=== PATIENT | female | born 1960 | race Caucasian/White ===

== ENCOUNTER 2016-10-04 10:04 | Emergency (ER) | payer OTHER ==
[~2016-10-04] VITALS: Ht 165.1 cm; Wt 75.5 kg
[~2016-10-04 10:04] MED LIST: GABA300C3 PO; ULTR50TA PO
[2016-10-04 10:13] VITALS: BP 157/85; PULSE 102; RESP 16; TEMP 98.3; O2SAT 98
--- NOTE | 2016-10-04 10:35 | PD ---
HPI Chief Complaint: GI Complaint Time Seen by Provider: 10:26 Travel History International Travel<30 days: No Contact w/Intl Traveler<30days: No Traveled to known affect area: No History of Present Illness HPI This 56-year-old female is complaining of headache and vomiting. She says she' s been sick since Sunday night. She had a fairly sudden onset of headache. It's a headache is located behind both of the eyes. There is some photophobia. She has no numbness or tingling. She says she is generally not prone to headaches. Since the headache started she's been having some nausea and vomiting. She's been vomiting just about whenever she eats. She is not on any medication. She is generally healthy [facility] Past Medical History Medical History: Denies Significant Hx Cancer: No Cardiovascular Problems: No Diabetes: No Endocrine: No Genitourinary: No Hepatitis: No Hiatal Hernia: No Immune Disorder: No Musculoskeletal: No Neurologic: No Psychiatric: No Reproductive: No Respiratory: No Thyroid Disease: No Influenza Vaccination: No ?: Not Past Surgical History Abdominal Surgery: No AICD: No Cardiac Surgery: No Ear Surgery: No Endocrine Surgery: No Eye Surgery: No Genitourinary Surgery: Yes (BLADDER TACKED) Gynecologic Surgery: Yes (ABLATION, PARTIAL HYSTERECTOMY) Hysterectomy: Yes Joint Replacement: No Oral Surgery: Yes (IMPLANTS) Pacemaker: No Thoracic Surgery: No Social History Alcohol Use: No Tobacco Use: Yes (VAPES) Substance Use: No Allergies-Medications (Allergen,Severity, Reaction): Coded Allergies: No Known Allergies (Unverified , 10/04/16) Reported Meds & Prescriptions Reported Meds & Active Scripts Active No Active Prescriptions or Reported Medications Review of Systems General / Constitutional: No: Fever, Chills Eyes: Positive: Photophobia, No: Diploplia HENT: Positive: Headaches, No: Vertigo, Lightheadedness Cardiovascular: No: Chest Pain or Discomfort, Palpitations Respiratory: No: Cough, Shortness of Breath Gastrointestinal: Positive: Nausea, Vomiting Genitourinary: No: Frequency Musculoskeletal: No: Myalgias Skin: No Rash, No Itching Endocrine: No: Heat Intolerance Physical Exam Narrative GENERAL: Well-developed female SKIN: Focused skin assessment warm/dry. HEAD: Atraumatic. Normocephalic. EYES: Pupils equal and round. No scleral icterus. No injection or drainage. ENT: No nasal bleeding or discharge. Mucous membranes pink and moist. NECK: Trachea midline. No JVD. Neck is supple CARDIOVASCULAR: Regular rate and rhythm. No murmur appreciated. RESPIRATORY: No accessory muscle use. Clear to auscultation. Breath sounds equal bilaterally. GASTROINTESTINAL: Abdomen soft, non-tender, nondistended. Hepatic and splenic margins not palpable. MUSCULOSKELETAL: No obvious deformities. No clubbing. No cyanosis. No edema. NEUROLOGICAL: Awake and alert. No obvious cranial nerve deficits. Motor grossly within normal limits. Normal speech. PSYCHIATRIC: Appropriate mood and affect; insight and judgment normal. Data Data Last Documented VS Vital Signs Date Time Temp Pulse Resp B/P Pulse Ox O2 Delivery O2 Flow Rate FiO2 10/04/16 10:13 98.3 102 16 157/85 98 Orders Complete Blood Count With Diff (10/04/16 10:32) Comprehensive Metabolic Panel (10/04/16 10:32) Urinalysis - C+S If Indicated (10/04/16 10:32) Influenzae A/B Antigen (10/04/16 10:32) Ct Brain W/O Iv Contrast(Rout) (10/04/16 10:32) Sodium Chlor 0.9% 1000 Ml Inj (Ns 1000 M (10/04/16 10:45) Ondansetron Inj (Zofran Inj) (10/04/16 10:45) Ketorolac Inj (Toradol Inj) (10/04/16 10:45) Urine Culture (10/04/16 10:35) Prochlorperazine Inj (Compazine Inj) (10/04/16 11:30) Morphine Inj (Morphine Inj) (10/04/16 11:30) Labs Laboratory Tests Test 10/04/16 10/04/16 10:35 10:40 Urine Collection Type CLEAN CATCH Urine Color YELLOW Urine Turbidity SLIGHT Urine pH 6.0 Urine Specific [place] 1.023 Urine Protein NEG mg/dL Urine Glucose (UA) NEG mg/dL Urine Ketones NEG mg/dL Urine Occult Blood MOD Urine Nitrite NEG Urine Bilirubin NEG Urine Leukocyte Esterase TRACE Urine RBC 10-14 /hpf Urine WBC 3-5 /hpf Urine Squamous Epithelial > 8 /hpf Cells Urine Bacteria MANY /hpf Microscopic Urinalysis Comment CULTURE INDICATED Urine Collection Time 10:35 White Blood Count 9.9 TH/MM3 Red Blood Count 5.15 MIL/MM3 Hemoglobin 14.9 GM/DL Hematocrit 45.2 % Mean Corpuscular Volume 87.6 FL Mean Corpuscular Hemoglobin 29.0 PG Mean Corpuscular Hemoglobin 33.0 % Concent Red Cell Distribution Width 12.5 % Platelet Count 250 TH/MM3 Mean Platelet Volume 8.9 FL Neutrophils (%) (Auto) 69.0 % Lymphocytes (%) (Auto) 25.2 % Monocytes (%) (Auto) 4.9 % Eosinophils (%) (Auto) 0.3 % Basophils (%) (Auto) 0.6 % Neutrophils # (Auto) 6.8 TH/MM3 Lymphocytes # (Auto) 2.5 TH/MM3 Monocytes # (Auto) 0.5 TH/MM3 Eosinophils # (Auto) 0.0 TH/MM3 Basophils # (Auto) 0.1 TH/MM3 CBC Comment DIFF FINAL Differential Comment Sodium Level 137 MEQ/L Potassium Level 4.4 MEQ/L Chloride Level 101 MEQ/L Carbon Dioxide Level 30.0 MEQ/L Anion Gap 6 MEQ/L Blood Urea Nitrogen 16 MG/DL Creatinine 1.20 MG/DL Estimat Glomerular Filtration 46 ML/MIN Rate Random Glucose 102 MG/DL Calcium Level 9.4 MG/DL Total Bilirubin 0.5 MG/DL Aspartate Amino Transf 26 U/L (AST/SGOT) Alanine Aminotransferase 25 U/L (ALT/SGPT) Alkaline Phosphatase 108 U/L Total Protein 8.8 GM/DL Albumin 4.0 GM/DL [facility] Medical Decision Making Medical Screen Exam Complete: Yes Emergency Medical Condition: Yes Medical Record Reviewed: Yes Differential Diagnosis Differential includes viral syndrome, gastroenteritis, migraine headache, cerebral hemorrhage Narrative Course CT scan is negative. Her white count is normal. Given some IV fluids and symptomatic treatment with some improvement. I suspect this is a viral illness. I will prescribe Zofran and Percocet Diagnosis Primary Impression: Viral syndrome Scripts Oxycodone-Acetaminophen (Percocet)7.5-325 mg Tab1 Tab PO Q4H PRN (PAIN) #20 TAB Ref 0 Prov:Lonnie Orellana MD 10/04/16 Ondansetron Odt (Zofran Odt)4 Mg Tab4 Mg SL Q6HR PRN (Nausea/Vomiting) #12 TAB Ref 0 Prov:Lonnie Orellana MD 10/04/16 Disposition: 01 DISCHARGE HOME Condition: Stable Lonnie Orellana MD Oct 04, 2016 10:35
[2016-10-04] MEDS ORDERED: ONDANSETRON HCL 4 MG/2 ML VIAL IV PUSH ONE (10:45)
[2016-10-04] MEDS ORDERED: SODIUM CHLOR 0.9% 1000 ML INJ 1,000 ML IV ONE (10:45)
[2016-10-04] MEDS ORDERED: KETOROLAC TROMETHAMINE 30 MG/ML (IVP) VIAL IV PUSH ONE (10:45)
[2016-10-04 10:51] LABS: AUTOMATED NEUTROPHIL # 6.8 TH/MM3 (1.8-7.7); BASOPHIL # 0.1 TH/MM3 (0-0.2); BASOPHIL % 0.6 % (0.0-2.0); EOSINOPHIL % 0.3 % (0.0-4.0); HEMATOCRIT 45.2 % (35.0-46.0); LYMPH % 25.2 % (9.0-44.0); LYMPHOCYTE # 2.5 TH/MM3 (1.0-4.8); MEAN CELL VOLUME 87.6 FL (80.0-100.0); MONO % 4.9 % (0.0-8.0); PLATELET COUNT 250 TH/MM3 (150-450); RED BLOOD COUNT 5.15 MIL/MM3 (4.00-5.30); RED CELL DISTRIBUTION WIDTH 12.5 % (11.6-17.2); WHITE BLOOD COUNT 9.9 TH/MM3 (4.0-11.0)
[2016-10-04 10:52] LABS: GLUCOSE,URINE NEG (NEG); KETONE, URINE NEG (NEG); NITRITE,URINE NEG (NEG)
[2016-10-04 10:53] LABS: HEMO FLAGS DIFF FINAL
[2016-10-04 10:57] LABS: BLOOD, URINE MOD (NEG)
[2016-10-04 11:00] LABS: CHLORIDE 101 MEQ/L (98-107); SODIUM (NA) 137 MEQ/L (136-145)
--- NOTE | 2016-10-04 11:01 | RADRPT ---
EXAM DATE/TIME: 10/04/2016 10:48 [place] COMPARISON: No previous studies available for comparison. INDICATIONS : Cephalgia, dizziness, nausea and vomiting. RADIATION DOSE: 60.32 CTDIvol (mGy) MEDICAL HISTORY : None SURGICAL HISTORY : Hysterectomy. ENCOUNTER: Initial ACUITY: 4 - 6 days PAIN SCALE: 9/10 LOCATION: cranial TECHNIQUE: Multiple contiguous axial images were obtained of the head. Using automated exposure control and adj ustment of the mA and/or kV according to patient size, radiation dose was kept as low as reasonably a chievable to obtain optimal diagnostic quality images. DICOM format image data is available electro nically for review and comparison. FINDINGS: CEREBRUM: The ventricles are normal for age. No evidence of midline shift, mass lesion, hemorrhage or acute in farction. No extra-axial fluid collections are seen. POSTERIOR FOSSA: The cerebellum and brainstem are intact. The 4th ventricle is midline. The cerebellopontine angle i s unremarkable. EXTRACRANIAL: The visualized portion of the orbits is intact. SKULL: The calvaria is intact. No evidence of skull fracture. CONCLUSION: Normal examination. Bakari Hammonds Jr., MD on October 04, 2016 at 10:58 Board Certified Radiologist. This report was verified electronically.
[2016-10-04 11:03] LABS: ANION GAP 6 MEQ/L (5-15)
[2016-10-04 11:04] LABS: BLOOD UREA NITROGEN 16 MG/DL (7-18)
[2016-10-04 11:05] LABS: METHOD OF COLLECTION CLEAN CATCH
[2016-10-04 11:06] LABS: BACTERIA, URINE MANY /hpf; SQUAMOUS EPITHELIAL CELL URINE > 8 /hpf (0-5); URINE COLOR YELLOW (YELLW/STRAW)
[2016-10-04 11:07] LABS: COMMENT (UR) CULTURE INDICATED; CULTURE IF INDICATED CULTURE INDICATED
[2016-10-04 11:07] LABS: ALT (GPT) 25 U/L (10-53); AST (GOT) 26 U/L (15-37); GLOMERULAR FILTRATION RATE 46 ML/MIN (>89)
[2016-10-04 11:08] LABS: TOTAL BILIRUBIN ADULT 0.5 MG/DL (0.2-1.0)
[2016-10-04 11:10] LABS: ALKALINE PHOSPHATASE 108 U/L (45-117)
[2016-10-04 11:25] LABS: POTASSIUM 4.4 MEQ/L (3.5-5.1)
[2016-10-04] MEDS ORDERED: PROCHLORPERAZINE INJ 10 MG/2 ML VIAL IV PUSH ONE (11:30)
[2016-10-04] MEDS ORDERED: MORPHINE SULFATE 8 MG/ML INJ IV PUSH ONE (11:30)
[2016-10-04] MEDS ORDERED: ZOFR4TAB3 SL (12:23)
[2016-10-04] MEDS ORDERED: PERC7.5T13 PO (12:23)
[2016-10-04 12:30] VITALS: BP 126/77; PULSE 86; RESP 16; O2SAT 98
[2016-10-04 12:41] VITALS: BP 126/77
== END 2016-10-04 12:53 | disposition home or self-care (01) ==
LOC: PHED 10:04
DX: B34.9 Viral infection, unspecified (principal); R51 Headache; H53.149 Visual discomfort, unspecified; R11.2 Nausea with vomiting, unspecified; R82.99 Other abnormal findings in urine; Z72.0 Tobacco use
CPT/HCPCS: 70450; 80053; 81001; 85025; 87086; 87804; 96361; 96374; 96375; 99285; J0780; J1885; J2270; J2405; J7030